=== PATIENT | female | born 1975 | race Caucasian/White ===

== ENCOUNTER 2017-01-15 23:12 | Emergency (ER) | payer SELFPAY ==
[2017-01-15] MEDS ORDERED: Oxymetazoline HCl 0.05% ( 15 ML ) ONE (23:43)
[2017-01-15] MEDS ORDERED: Ibuprofen 800 MG TAB ONE (23:43)
[2017-01-15] MEDS ORDERED: Dexamethasone 4 MG TAB ONE (23:44)
[2017-01-15] MEDS ORDERED: Dexamethasone 4 MG TAB PO SCH (23:45)
== END 2017-01-16 00:11 | disposition home or self-care (01) ==
LOC: ERS 23:12
DX: J30.2 Other seasonal allergic rhinitis (principal); E78.5 Hyperlipidemia, unspecified; I10 Essential (primary) hypertension; Z87.891 Personal history of nicotine dependence
CPT/HCPCS: 99283; J8540

== ENCOUNTER 2017-10-16 12:03 | Observation (INO) | payer SELFPAY ==
[2017-10-16 12:37] LABS: #Basophils 0.1 thou/uL (0.0-0.2); #Eosinphils 0.4 thou/uL (0.0-0.7); #Lymphocytes 4.3 thou/uL (1.20-3.40); #Monocytes 0.6 thou/uL (0.11-0.59); #Neutrophils 5.7 thou/uL (1.40-6.50); %Basophils 0.5 % (0.0-1.0); %Eosinophils 3.6 % (0.0-10.0); %Lymphocytes 39.2 % (21.0-51.0); %Monocytes 5.1 % (0.0-10.0); %Neutrophils 51.7 % (42.0-75.0); Hemoglobin 13.3 g/dL (12.0-16.0); Mean Corpuscular HGB CONC 34.3 g/dL (32.0-36.0); Mean Corpuscular Volume 84.6 fL (78.0-98.0); Mean Platelet Volume 6.6 fL (7.4-10.4); Platelet Count 303 thou/uL (130-400); RBC Distribution Width 12.1 % (11.5-14.5); Red Blood Cell (RBC) Count 4.59 mill/uL (4.20-5.40)
[2017-10-16 12:43] LABS: BHCG - Serum Negative (NEGATIVE); PTT 26.3 SEC (22.9-36.1); Pregs Control Background? CLEAR/WHITE (CLR/WHITE); Pregs Control Bar Appear? YES (CONTROL BAR)
[2017-10-16 12:48] LABS: INR-International Normal Ratio 0.8; Prothrombin Time 11.6 SEC (12.0-14.7)
[2017-10-16 12:51] LABS: ALT (SGPT) 51 U/L (8-55); AST (SGOT) 33 U/L (5-34); Albumin 4.6 g/dL (3.5-5.0); Alkaline Phosphatase 101 U/L (40-150); Anion Gap 13 mmol/L (10-20); BUN (Urea Nitrogen) 12 mg/dL (7.0-18.7); Bilirubin, Total 0.4 mg/dL (0.2-1.2); Calc. Creatinine Clearance 0 mL/min (70-130); Calcium 10.1 mg/dL (7.8-10.44); Carbon Dioxide 27 mmol/L (22-29); Chloride 102 mmol/L (98-107); Estimated GFR-MDRD 78; Globulin 3.4 g/dL (2.4-3.5); Glucose 181 mg/dL (70-105); Potassium 4.5 mmol/L (3.5-5.1); Sodium 137 mmol/L (136-145)
[2017-10-16 12:53] LABS: CKMB 1.4 ng/mL (0-6.6); Troponin I Less than 0.010 ng/mL (< 0.028)
--- NOTE | 2017-10-16 13:02 | CT ---
CT ANGIO OF HEAD WITH CONTRAST: Technique: Multiple contiguous axial images were obtained through the head following angiogram protoc ol with multiplanar reconstruction and 3D post processing. Indication: Stroke protocol. FINDINGS: Intracranial internal carotid arteries are patent and symmetric. Middle cerebral arteries are patent and symmetric. Anterior cerebral arteries appear patent and symmetric. Basilar arteries are patent. Posterior cerebral arteries are patent and symmetric. No evidence of pro ximal stenosis or occlusion identified. IMPRESSION: Unremarkable CT angio of cerebral circulation. CT ANGIO NECK: Technique: Multiple contiguous axial images were obtained through the neck with IV enhancement follow ing angio protocol with multiplanar reconstruction and 3D post processing. Indication: Stroke protocol. Left sided weakness. FINDINGS: No evidence of stenosis seen at the origin of the arch vessels. Common carotid arteries are unremarkable bilaterally. Carotid bifurcations are unremarkable bilaterally. No evidence of atherosclerotic change. The extracranial internal carotid arteries are patent and symmetric. No evidence of stenosis. No evid ence of dissection. Vertebral arteries are patent and symmetric. No soft tissue abnormality identified. IMPRESSION: Unremarkable CT angio of neck. POS: BLU
--- NOTE | 2017-10-16 13:29 | CT ---
CT OF THE BRAIN WITHOUT CONTRAST: INDICATION: Stroke alert with facial numbness, left-sided weakness, and facial droop. COMPARISON: None. FINDINGS: No acute infarct, hemorrhage, or hydrocephalus is present. Septum pellucidum and third ventricle are midline. The skull and extracranial soft tissues are unremarkable. IMPRESSION: No acute intracranial abnormality. Findings were called to Dr. Orourke at 12:22 p.m. on 10/16/17. CODE CR POS: BLU
[2017-10-16 13:35] LABS: Bilirubin Negative (Negative); Blood, Urine Negative (Negative); Clarity CLEAR (Clear); Glucose, Urine (Dipstick) Negative (Negative); Leukocyte Negative (Negative); Nitrite Negative (Negative); Protein, Urine (Dipstick) Negative (Neg-Trace); Urobilinogen 0.2 mg/dL (0.2-1.0); pH, Urine 7.5 (5.0-9.0)
[2017-10-16] MEDS ORDERED: Aspirin 81 mg Enteric Coated Tablet ONE (14:02)
[2017-10-16] MEDS ORDERED: ISOVUE-370 76%-LOCM 1 ML ONE (14:40)
--- NOTE | 2017-10-16 15:07 | HP ---
[facility] [place] [place] REASON FOR ADMISSION: Left-sided upper and lower extremity paraesthesia as well as facial paraesthes ia, rule out cerebrovascular accident. HISTORY OF PRESENT ILLNESS: This is a 42-year-old female, who has underlying history of dyslipidemia ; diabetes, type 2; hypertension; and morbid obesity. She also has chronic cervical spine and lumbar spine degenerative disease, who presented to emergency room with a complaint of left-sided facial up per and lower extremity paraesthesia. Patient reports that all symptoms started yesterday evening ar ound 05:00 p.m. when she was making burger. She reports that her kissed her, and subsequentl y, she was experiencing left-sided facial numbness. She feels as if Orajel placed in her mouth. Sub sequently, she rested, and she also noticed in couple of hours that her left upper extremity was also feeling numb. During nighttime, she also experienced that her lower extremity was also started feel ing numb. Patient denies any similar problem in the past. She does not attribute these symptoms to her cervical and lumbar spine degenerative disease. This was completely different feeling. She was feeling subjective weakness, but she was able to hold and use her left upper extremity, but feeling w as completely different compared to right side. This morning, she woke up; at that time, she was als o having similar feeling and that is why today she decided to come to the emergency room for evaluati on. Patient denies any associated chest pain, palpitation, dizziness, syncope. She denies any unsteadine ss. She denies any trauma or headache. She denies any motor weakness. The patient does report that she has peripheral neuropathy and she is feeling numb in both feet, but this was completely different as well. REVIEW OF SYSTEMS: The following complete review of systems was negative, unless otherwise mentioned in the HPI or below: Constitutional: Weight loss or gain, ability to conduct usual activities. Sk in: Rash, itching. Eyes: Double vision, pain. ENT/Mouth: Nose bleeding, neck stiffness, pain, te nderness. Cardiovascular: Palpitations, dyspnea on exertion, orthopnea. Respiratory: Shortness of breath, wheezing, cough, hemoptysis, fever, or night sweats. Gastrointestinal: Poor appetite, abdo becky pain, heartburn, nausea, vomiting, constipation, or diarrhea. Genitourinary: Urgency, frequen cy, dysuria, nocturia. Musculoskeletal: Pain, swelling. Neurologic/Psychiatric: Anxiety, depressi on. Allergy/Immunologic: Skin rash, bleeding tendency. Please see my HPI for pertinent positive an d negative. All other review of systems reviewed and negative except as mentioned in the HPI. ALLERGIES: CODEINE, SULFATE, PENICILLIN. CURRENT HOME MEDICATIONS: [place] 10 half tablet q.4 hourly p.r.n., Robaxin 750 mg 4 times daily, leoncio tidine 150 mg as needed, gabapentin 600 mg 4 times daily, atenolol 50 mg p.o. daily, metformin 500 mg 3 times daily, trazodone 100 mg p.o. at bedtime, magnesium 250 mg p.o. daily, Fioricet one tablet q. 4 hourly p.r.n., vitamin D3 2000 unit p.o. daily, lovastatin 20 mg p.o. at bedtime, diazepam 5 mg p.o . b.i.d. PAST MEDICAL HISTORY: Diabetes, type 2; degenerative spine disease in cervical spine as well as lumb ar spine, dyslipidemia. PAST PSYCHIATRIC HISTORY: Reviewed and negative. PAST SURGICAL HISTORY: D and C, uterine biopsy, cyst removed from left wrist, left ankle surgery for ligaments, lumbar puncture in 2007, hysterectomy, tonsillectomy, tubal ligation. FAMILY HISTORY: Positive for coronary artery disease to her father. No family history of cancer or stroke. SOCIAL HISTORY: Patient is and lives at home with her . She quit smoking 10 months a go. No history of alcohol or other illicit drug abuse. EMERGENCY ROOM COURSE: The patient is given aspirin. PHYSICAL EXAMINATION: VITAL SIGNS: On arrival, blood pressure 160/83, pulse 70, respiratory rate 18, temperature 98.7, sat uration 98% on room air, weight 111 kilograms. GENERAL: The patient is currently alert, awake, in no obvious acute distress. HEENT: Normocephalic, atraumatic. Eyes: Pupils round, reactive to light. Extraocular muscle intac t. ENT: Oropharynx within normal limits. Moist mucous membranes. No oral lesion, no pharyngeal er ythema, no exudate. NECK: Supple, no JVD, no thyromegaly, no carotid bruit, no jugular venous distention. LUNGS: Clear to auscultation without any rhonchi or rales. CARDIAC: S1 and S2, regular. No murmur, no gallop, no rub. ABDOMEN: Obesity present. Bowel sounds present, nontender, nondistended. No organomegaly, no mass, no suprapubic tenderness. BACK EXAMINATION: Unremarkable, no point tenderness, no CVA tenderness. EXTREMITIES: Upper extremities, passive movement of all joints are normal. Lower extremities, no ed oracio. Good peripheral pulsation. SKIN: No skin rash other than some ant bite in her feet. PSYCHIATRIC: Normal affect. NEUROLOGIC: The patient is alert, oriented x3. Cranial nerves II-XII intact. Speech normal. Motor , 5/5 in all 4 limbs. No pronator drift. Reflexes bilaterally symmetrical. Plantar bilateral flexo r. Gait normal. The patient does have subjective sensory deficit in the left side of face, left upp er extremity, and left lower extremity. SIGNIFICANT LABORATORY DATA: EKG showing junctional rhythm. CT brain, based on my review, no acute intracranial process. CT angiography with a CT [place] negative for any acute process. CBC : WBC 11.0, hemoglobin 13.3, platelets 303. INR 0.8. BMP: Sodium 137, potassium 4.5, chloride 102 , carbon dioxide 27, anion gap 13, BUN 12, creatinine 0.80, glucose 181, calcium 10.1. LFT: AST 33, ALT 51, alkaline phosphatase 101, albumin 4.6, CK-MB 1.4, troponin I less than 0.010. baylee t negative. Urinalysis normal. ASSESSMENT AND PLAN: 1. Acute left-sided paresthesia, including face, upper extremity, and lower extremity, concerning fo r pure sensory stroke, lacunar likely. CT brain did not detect any abnormal process. CT [place] is also negative. The patient presented late. Patient already took aspirin at home by herself and she was given aspirin 81 mg in the emergency room. At this point, the patient still has ongoing symptoms. So, we will keep her in stroke floor for observation. We will do MRI brain to rule out a ny acute process. Echocardiography will be obtained. We will check lipid profile, homocysteine. Fo r risk stratification, we will do neuro check every 4 hourly. If investigation is unremarkable, then we will consider discharging her home tomorrow. 2. Diabetes, type 2, with diabetic neuropathy. We will continue insulin as per sliding scale per pr otocol. Diabetic diet will be given. Continue metformin 500 mg three times daily. 3. Gastroesophageal reflux disease. Continue Pepcid 20 mg p.o. b.i.d. 4. Dyslipidemia. Continue on lovastatin equivalent while in hospital. Check lipid profile tomorrow morning. 5. Hypertension, currently well controlled. Continue atenolol 50 mg p.o. daily. 6. Chronic cervical spine degenerative disease as well as lumbar spine degenerative disease. This p atient has intermittent radicular symptoms in the left upper extremity as well as left lower extremit y. At this point, we will continue Robaxin 750 mg q.i.d. p.r.n., [place] p.r.n. basis, gabapentin 600 mg q.i.d. 7. Migraine headache. We will continue Fioricet one tablet q.4 hourly p.r.n. 8. Morbid obesity. Dietary education given, weight loss education given. Healthy lifestyle measure s discussed with the patient. 9. Deep venous thrombosis prophylaxis not needed, because we are expecting discharge in 24 hours. 10. Gastrointestinal prophylaxis. Pepcid 20 mg p.o. b.i.d. 11. Code status: The patient is FULL CODE. Patient's is surrogate decision maker. Disposition plan within 24 hours. Plan of care discussed with the patient in detail.
[2017-10-16] MEDS ORDERED: Dextrose 50% Abboject 50 ML SYRINGE SLOW IVP PRN (15:33)
[2017-10-16] MEDS ORDERED: Mag-Al 1200 mg/1200 mg/30 ML UDCUP PO PRN (15:33)
[2017-10-16] MEDS ORDERED: Acetaminophen 325 MG TAB PO PRN (15:33)
[2017-10-16] MEDS ORDERED: Diabetic Tussin 200 MG/10 ML UDCUP PO PRN (15:33)
[2017-10-16] MEDS ORDERED: Ondansetron ODT 4 MG TAB PO PRN (15:33)
[2017-10-16] MEDS ORDERED: hydrALAZINE 20 MG/ML VIAL SLOW IVP PRN (15:33)
[2017-10-16] MEDS ORDERED: HumaLOG 300 UNITS/3 ML VIAL SC PRN ×2 (15:33)
[2017-10-16] MEDS ORDERED: Dextrose 5% in Water 1,000 ML IV PRN (15:33)
[2017-10-16] MEDS ORDERED: Chloraseptic Spray 180 ml Bottle PO PRN (15:33)
[2017-10-16] MEDS ORDERED: Sodium Chloride 0.65% Nasal 44 ML BOT EA NARE PRN (15:33)
[2017-10-16] MEDS ORDERED: Milk Of Magnesia 30 ML UDCUP PO PRN (15:33)
[2017-10-16] MEDS ORDERED: Zolpidem Tartrate 5 MG TAB PO PRN (15:33)
[2017-10-16] MEDS ORDERED: traZODone HCl 50 MG TAB PO PRN (15:33)
[2017-10-16] MEDS ORDERED: Loperamide HCl 2 MG CAP PO PRN (15:33)
[2017-10-16] MEDS ORDERED: Eucerin (Mineral Oil/Petrolatum,White) 30 gm Jar TOP PRN (15:33)
[2017-10-16] MEDS ORDERED: Artificial Tears 18 DROP/0.9 ML EA EYE PRN (15:33)
[2017-10-16] MEDS ORDERED: Senokot 8.6 MG TAB PO PRN (15:33)
[2017-10-16] MEDS ORDERED: Loratadine 10 MG TAB PO PRN (15:33)
[2017-10-16] MEDS ORDERED: Ondansetron HCl/PF 4 MG/2 ML Vial IVP PRN (15:33)
[2017-10-16 16:28] LABS: Troponin I Less than 0.010 ng/mL (< 0.028)
[2017-10-16] MEDS: Gabapentin 300 MG CAP PO SCH ×2 (17:15→20:28)
[2017-10-16 18:55] LABS: Troponin I Less than 0.010 ng/mL (< 0.028)
[2017-10-16] MEDS: Diazepam 5 MG TAB PO SCH (20:28)
[2017-10-16] MEDS: Famotidine 20 MG TAB PO SCH (20:29)
[2017-10-16] MEDS ORDERED: Atorvastatin Calcium 10 MG TAB PO SCH (21:00)
[2017-10-16 21:13] VITALS: BMI 38.5
[2017-10-16] MEDS: HYDROcodone/Acetaminophen 5/325 mg Tablet PO PRN (22:53)
[2017-10-16] MEDS: Methocarbamol 500 MG TAB PO PRN (22:57)
[2017-10-17] MEDS: HYDROcodone/Acetaminophen 5/325 mg Tablet PO PRN ×2 (04:50→13:17)
[2017-10-17] MEDS: Methocarbamol 500 MG TAB PO PRN ×2 (04:56→13:18)
[2017-10-17 05:38] LABS: Cardiac Risk 5.5 (Less than 4.5)
--- NOTE | 2017-10-17 08:57 | PDOC.PN ---
- Subjective Encounter Start Date: 10/17/17 Encounter Start Time: 06:50 -: old records requested/rev pt still feels subjective parasthesia but improving, has migraine headache - Objective Resuscitation Status: Resuscitation Status FULL:Full Resuscitation MAR Reviewed: Yes Vital Signs & Weight: Vital Signs (12 hours) Temp Pulse Resp BP Pulse Ox 10/17/17 08:00 97.4 F L 78 20 104/59 L 93 L 10/17/17 03:35 98.9 F 73 20 121/63 91 L 10/16/17 23:06 97.9 F 76 20 117/58 L 95 10/16/17 21:52 95 Weight Weight 246 lb Result Diagrams: 10/16/17 12:18 10/16/17 12:18 Additional Labs: Accuchecks 10/17/17 10/16/17 10/16/17 05:19 19:50 17:17 POC Glucose 135 H 172 H 131 H EKG Reviewed by me: Yes (nsr) Phys Exam - Physical Examination Constitutional: NAD HEENT: PERRLA, moist MMs, sclera anicteric Neck: no JVD, supple Respiratory: no wheezing, no rales, no rhonchi Cardiovascular: RRR, no significant murmur, no rub Gastrointestinal: soft, non-tender, no distention, positive bowel sounds Musculoskeletal: no edema, pulses present Neurological: non-focal, moves all 4 limbs subjective parasthesia on left side Lymphatic: no nodes Psychiatric: normal affect, A&O x 3 Skin: no rash, normal turgor Dx/Plan (1) Paresthesia of left upper and lower extremity Code(s): R20.2 - PARESTHESIA OF SKIN Status: Acute (2) DJD (degenerative joint disease) of cervical spine Code(s): M47.812 - SPONDYLOSIS W/O MYELOPATHY OR RADICULOPATHY, CERVICAL REGION Status: Chronic (3) DJD (degenerative joint disease), lumbosacral Code(s): M51.37 - OTHER INTERVERTEBRAL DISC DEGENERATION, LUMBOSACRAL REGION Status: Chronic (4) Diabetes type 2, controlled Code(s): E11.9 - TYPE 2 DIABETES MELLITUS WITHOUT COMPLICATIONS Status: Chronic (5) Dyslipidemia Code(s): E78.5 - HYPERLIPIDEMIA, UNSPECIFIED Status: Chronic (6) GERD (gastroesophageal reflux disease) Code(s): K21.9 - GASTRO-ESOPHAGEAL REFLUX DISEASE WITHOUT ESOPHAGITIS Status: Chronic (7) Hypertension Code(s): I10 - ESSENTIAL (PRIMARY) HYPERTENSION Status: Chronic (8) Migraine Code(s): G43.909 - MIGRAINE, UNSP, NOT INTRACTABLE, WITHOUT STATUS MIGRAINOSUS Status: Chronic (9) Obesity (BMI 30-39.9) Code(s): E66.9 - OBESITY, UNSPECIFIED Status: Chronic - Plan cont current plan of care * today plan for MRI brain and echo * if mri brain dose show any infarct, will consult neurology and change to inpt status * if mri is negative then she can be discharged home later today * echo is pending * medication reviewed as below * symptomatic treatment * aspirin on discharge. Review of Systems - Review of Systems Eyes: negative: Pain, Vision Change, Conjunctivae Inflammation, Eyelid Inflammation, Redness, Other ENT: negative: Ear Pain, Ear Discharge, Nose Pain, Nose Discharge, Nose Congestion, Mouth Pain, Mouth Swelling, Throat Pain, Throat Swelling, Other Respiratory: negative: Cough, Dry, Shortness of Breath, Hemoptysis, SOB with Excertion, Pleuritic Pain, Sputum, Wheezing Cardiovascular: negative: chest pain, palpitations, orthopnea, paroxysmal nocturnal dyspnea, edema, light headedness, other Gastrointestinal: negative: Nausea, Vomiting, Abdominal Pain, Diarrhea, Constipation, Melena, Hematochezia, Other Genitourinary: negative: Dysuria, Frequency, Incontinence, Hematuria, Retention , Other Skin: negative: Rash, Lesions, [place], Bruising, Other Neurological: Numbness. negative: Weakness, Incoordination, Change in Speech, Confusion, Seizures, Other - Medications/Allergies Allergies/Adverse Reactions: Allergies Allergy/AdvReac Type Severity Reaction Status Date / Time codeine Allergy Verified 01/15/17 23:53 Penicillins Allergy Verified 01/15/17 23:53 Medications: Current Medications Acetaminophen (Tylenol) 650 mg PO Q4H PRN PRN Reason: Headache/Fever or Pain Acetaminophen/Butalbital/Caffeine (Fioricet) 1 tab PO Q4H PRN PRN Reason: Headache Stop: 10/21/17 15:34 Hydrocodone Bitart/Acetaminophen ([place] 5/325) 1 tab PO Q4H PRN PRN Reason: Moderate Pain (4-6) Last Admin: 10/17/17 04:50 Dose: 1 tab Al Hydroxide/Mg Hydroxide (Maalox) 30 ml PO Q6H PRN PRN Reason: Heartburn or Indigestion Artificial Tears (Tears Naturale) 0 drop EA EYE PRN PRN PRN Reason: Dry Eyes Aspirin (Ecotrin) 325 mg PO DAILY [facility] Atenolol (Tenormin) 50 mg PO DAILY [facility] Atorvastatin Calcium (Lipitor) 10 mg PO HS [facility] Last Admin: 10/16/17 20:28 Dose: 10 mg Cholecalciferol (Vitamin D3) 2,000 units PO DAILY [facility] Dextrose/Water (Dextrose 50%) 25 gm SLOW IVP PRN PRN PRN Reason: Hypoglycemia Diazepam (Valium) 5 mg PO BID [facility] Last Admin: 10/16/17 20:28 Dose: 5 mg Famotidine (Pepcid) 20 mg PO BID [facility] Last Admin: 10/16/17 20:29 Dose: Not Given Gabapentin (Neurontin) 600 mg PO QID [facility] Last Admin: 10/16/17 20:28 Dose: 600 mg Glucagon (Glucagon) 1 mg IM PRN PRN PRN Reason: Hypoglycemia Guaifenesin (Robitussin Sf) 200 mg PO Q4H PRN PRN Reason: Cough Hydralazine HCl (Apresoline) 10 mg SLOW IVP Q4H PRN PRN Reason: Systolic BP > 180 Dextrose/Water (D5w) 1,000 mls @ 0 mls/hr IV .Q0M PRN; As Directed PRN Reason: Hypoglycemia Insulin Human Lispro (Humalog) 0 units SC .MODERATE SLIDING SC PRN PRN Reason: Moderate Correctional Scale Insulin Human Lispro (Humalog) 0 units SC .BEDTIME SLIDING SC PRN PRN Reason: Bedtime Correctional Scale Loperamide HCl (Imodium) 2 mg PO PRN PRN PRN Reason: Diarrhea/Loose Stools Loratadine (Claritin) 10 mg PO DAILYPRN PRN PRN Reason: Sinus Symptoms Magnesium Hydroxide (Milk Of Magnesium) 30 ml PO DAILYPRN PRN PRN Reason: Constipation Magnesium Oxide (Magnesium Oxide) 250 mg PO DAILY [facility] Methocarbamol (Robaxin) 500 mg PO QID PRN PRN Reason: Muscle Spasm Last Admin: 10/17/17 04:56 Dose: 500 mg Mineral Oil/White Petrolatum (Eucerin Cream) 0 gm TOP BIDPRN PRN PRN Reason: Dry Skin Ondansetron HCl (Zofran Odt) 4 mg PO Q6H PRN PRN Reason: Nausea/Vomiting Ondansetron HCl (Zofran) 4 mg IVP Q6H PRN PRN Reason: Nausea/Vomiting Phenol (Chloraseptic [place] 180 Ml Bot) 0 ml PO PRN PRN PRN Reason: Sore Throat Senna (Senokot) 2 tab PO HSPRN PRN PRN Reason: Constipation Sodium Chloride ([place] Nasal [place] 0.65%) 0 ml EA NARE QIDPRN PRN PRN Reason: Nasal Congestion Trazodone HCl (Desyrel) 100 mg PO HS PRN PRN Reason: Insomnia Zolpidem Tartrate (Ambien) 5 mg PO HSPRN PRN PRN Reason: Insomnia
[2017-10-17] MEDS ORDERED: Atenolol 50 MG TAB PO SCH (09:00)
[2017-10-17] MEDS ORDERED: Aspirin 325 mg Enteric Coated Tablet PO SCH (09:00)
[2017-10-17] MEDS ORDERED: Magnesium Oxide 250 MG TAB PO SCH (09:00)
[2017-10-17] MEDS: Diazepam 5 MG TAB PO SCH (09:24)
[2017-10-17] MEDS: Fioricet 325/50/40 mg Tablet PO PRN ×2 (09:25→16:53)
[2017-10-17] MEDS: Famotidine 20 MG TAB PO SCH (09:27)
[2017-10-17] MEDS: Gabapentin 300 MG CAP PO SCH ×3 (09:29→16:52)
--- NOTE | 2017-10-17 11:18 | DIS ---
DATE OF ADMISSION: 10/16/2017 DATE OF DISCHARGE: 10/17/2017 DISCHARGE DISPOSITION: Home. PRIMARY DISCHARGE DIAGNOSIS: Paraesthesia, left face, left upper extremity and lower extremity. SECONDARY DISCHARGE DIAGNOSES: Migraine headache; obesity with BMI 38; hypertension; dyslipidemia; g astroesophageal reflux disease; degenerative spine disease of cervical and lumbosacral region; diabet es, type 2. PRIMARY PROCEDURE/OPERATION: None. RADIOLOGICAL INVESTIGATION: CT brain was negative for any acute intracranial process. CT [place] with angiography negative for any acute process. SIGNIFICANT LABORATORY DATA: WBC 11.0, hemoglobin 13.3, platelets 303. INR 0.8, LDL 167, triglyceri de 193, cholesterol 252, HDL 46, homocysteine 5.63. Cardiac enzymes negative. BMP normal. LFT norm al. Urinalysis normal. DISCHARGE MEDICATIONS: Aspirin 325 mg p.o. daily, atenolol 50 mg p.o. daily, Fioricet one tablet q.i .d. p.r.n., vitamin D3 2000 unit p.o. daily, diazepam 5 mg p.o. b.i.d., Nexium 20 mg p.o. daily, ferr ous sulfate 325 mg p.o. daily, gabapentin 600 mg p.o. q.i.d., [place] 10 one tablet q.4 hourly p.r.n., Claritin 10 mg p.o. daily, lovastatin 20 mg p.o. daily, magnesium 250 mg p.o. daily, metformin 500 mg p.o. t.i.d., methocarbamol 750 mg p.o. q.i.d., multivitamin 1 tablet p.o. daily, ranitidine 150 mg p .o. daily, Senokot 1 tablet p.o. b.i.d., trazodone 100 mg p.o. at bedtime. CONTRAINDICATIONS: None. CODE STATUS: FULL CODE. INPATIENT CONSULTANTS: None. ALLERGIES: CODEINE and PENICILLIN. DISCHARGE PLAN: Post hospital, the patient will follow up with primary care physician. HOSPITAL COURSE: This is a 42-year-old female, who experienced left facial and subsequently graduall y progressing paraesthesia to left upper extremity and lower extremity on 10/15/2017 in the evening t ayan. She came to medical attention in the morning of 10/16/2017, as patient did not feel any improve ment in her symptoms. In the emergency room, stroke alert was done and CT brain and CT [place] angiography was negative for any acute process. The patient was not a candidate for any kind of TPA intervention and she was observed on stroke floor. Today, she still has subjective paraesthesia on the left side, though is improvement from yesterday. Her neurological status remained stable. He r monitor remained normal. Her LDL was not well controlled and that is why I provided patient educat ion about low cholesterol diet and compliance with medication. At this point, the patient does not w ant to change her medication. She wanted to continue her lovastatin. Today, we are waiting for MRI and echocardiography. If MRI does show a stroke, then we will consider Neurology consultation and patient's status can be changed from observation to inpatient. If MRI is negative for any stroke, then the patient's symptoms are unlikely to be stroke. It is not consisten t with migraine equivalent as well. In that case, the patient can be discharged later on today and s he can follow up with the Neurology and primary care physician as an outpatient basis. The patient is seen and examined at bedside today. Please see my progress note from today for furthe r detail.
--- NOTE | 2017-10-17 13:05 | MRI ---
NONCONTRAST MRI BRAIN: Date: 10-17-17 History: Left sided facial droop with numbness and left sided weakness that started yesterday but now has resolved. TIA. Comparison: Noncontrast CT head, 10-16-17. FINDINGS: No signal abnormalities are seen within the brain. There is no evidence of an acute infarction. The s eptum pellucidum and third ventricle are on the midline. The ventricular system is normal in size, sh ape, and position. Appropriate flow voids are demonstrated at the base of the brain. Minimal mucosal thickening is seen in the left maxillary antrum as well as a few ethmoidal air cells. Orbits and remainder of the skull base have a normal MRI appearance. IMPRESSION: No acute intracranial abnormality is demonstrated. POS: BLU
[2017-10-17 15:32] VITALS: BP 119/70; TEMP 98.4
--- NOTE | 2017-10-21 11:56 | EKG ---
Test Reason : Blood Pressure : / mmHG Vent. Rate : 067 BPM Atrial Rate : 066 BPM P-R Int : 000 ms QRS Dur : 076 ms QT Int : 390 ms P-R-T Axes : 000 019 015 degrees QTc Int : 412 ms Accelerated Junctional rhythm Abnormal ECG Confirmed by SONA LI ([id number]), communications editor DONNELL THOMPSON ([id number]) on 10/21/2017 11:56:23 AM Referred By: Confirmed By:SONA LI
== END 2017-10-17 18:38 | disposition home or self-care (01) ==
LOC: ERS 12:03 → 2SE 14:01
PROVIDERS: ADMIT Internal Medicine; ATTEND Internal Medicine
DX: R20.2 Paresthesia of skin (principal); E11.9 Type 2 diabetes mellitus without complications; E66.01 Morbid (severe) obesity due to excess calories; E78.5 Hyperlipidemia, unspecified; K21.9 Gastro-esophageal reflux disease without esophagitis; I10 Essential (primary) hypertension; G43.909 Migraine, unspecified, not intractable, without status migrainosus; M51.36 Other intervertebral disc degeneration, lumbar region; M50.30 Other cervical disc degeneration, unspecified cervical region; Z68.38 Body mass index [BMI] 38.0-38.9, adult; Z87.891 Personal history of nicotine dependence; Z88.5 Allergy status to narcotic agent; Z88.0 Allergy status to penicillin; Z88.2 Allergy status to sulfonamides; Z79.899 Other long term (current) drug therapy; Z79.82 Long term (current) use of aspirin; Z79.84 Long term (current) use of oral hypoglycemic drugs
CPT/HCPCS: 36415; 36416; 70450; 70496; 70498; 70551; 80053; 80061; 81003; 82553; 83090; 84484; 84703; 85025; 85610; 85730; 93005; 93306; G0378

== ENCOUNTER 2018-01-31 17:22 | Observation (INO) | payer SELFPAY ==
[2018-01-31 18:40] LABS: #Basophils 0.1 thou/uL (0.0-0.2); #Eosinphils 0.3 thou/uL (0.0-0.7); #Lymphocytes 4.7 thou/uL (1.20-3.40); #Monocytes 0.6 thou/uL (0.11-0.59); #Neutrophils 5.6 thou/uL (1.40-6.50); %Basophils 0.8 % (0.0-1.0); %Eosinophils 2.7 % (0.0-10.0); %Lymphocytes 41.4 % (21.0-51.0); %Monocytes 5.6 % (0.0-10.0); %Neutrophils 49.5 % (42.0-75.0); Hemoglobin 12.7 g/dL (12.0-16.0); Mean Corpuscular HGB CONC 33.4 g/dL (32.0-36.0); Mean Corpuscular Hemoglobin 28.9 pg (27.0-31.0); Mean Corpuscular Volume 86.6 fL (78.0-98.0); Mean Platelet Volume 6.9 fL (7.4-10.4); Platelet Count 344 thou/uL (130-400); RBC Distribution Width 12.1 % (11.5-14.5); White Blood Cell (WBC) Count 11.4 thou/uL (4.8-10.8)
[2018-01-31 18:42] LABS: BHCG - Serum Negative (NEGATIVE); Pregs Control Background? CLEAR/WHITE (CLR/WHITE); Pregs Control Bar Appear? YES (CONTROL BAR)
[2018-01-31 18:48] LABS: INR-International Normal Ratio 0.9; PTT 27.3 SEC (22.9-36.1)
[2018-01-31 19:02] LABS: ALT (SGPT) 29 U/L (8-55); AST (SGOT) 22 U/L (5-34); Albumin 4.7 g/dL (3.5-5.0); Alkaline Phosphatase 99 U/L (40-150); Anion Gap 12 mmol/L (10-20); BUN (Urea Nitrogen) 13 mg/dL (7.0-18.7); Bilirubin, Total 0.4 mg/dL (0.2-1.2); Calc. Creatinine Clearance 0 mL/min (70-130); Calcium 10.1 mg/dL (7.8-10.44); Carbon Dioxide 29 mmol/L (22-29); Chloride 102 mmol/L (98-107); Estimated GFR-MDRD 76; Globulin 3.5 g/dL (2.4-3.5); Glucose 100 mg/dL (70-105); Potassium 4.1 mmol/L (3.5-5.1); Protein, Total 8.2 g/dL (6.0-8.3); Sodium 139 mmol/L (136-145)
[2018-01-31 19:03] LABS: CKMB 1.8 ng/mL (0-6.6); Troponin I Less than 0.010 ng/mL (< 0.028)
--- NOTE | 2018-01-31 19:10 | CT ---
NONCONTRAST CT HEAD: 01/31/18 HISTORY: Facial numbness and headache which started one day ago. COMPARISON: 10/16/17. FINDINGS: There is no evidence of a hemorrhage, acute infarction, mass effect or midline shift. Ventricular sys tem is normal in size, shape and position. There has been no interval change from prior exam. IMPRESSION: No acute intracranial abnormalities demonstrated. POS: MIRNA
[2018-01-31] MEDS ORDERED: Pantoprazole 40 MG VIAL ONE (20:07)
[2018-01-31] MEDS ORDERED: HYDROcodone/Acetaminophen 10/325 mg Tablet ONE (20:07)
[2018-01-31] MEDS ORDERED: Dextrose 50% Abboject 50 ML SYRINGE SLOW IVP PRN (20:54)
[2018-01-31] MEDS ORDERED: Dextrose 5% in Water 1,000 ML IV PRN (20:54)
[2018-01-31] MEDS ORDERED: Acetaminophen 325 MG TAB PO PRN (20:54)
[2018-01-31] MEDS ORDERED: Ondansetron PF 4 MG/2 ML Vial IVP PRN (20:54)
[2018-01-31] MEDS ORDERED: HumaLOG 300 UNITS/3 ML VIAL SC PRN (20:54)
--- NOTE | 2018-01-31 21:19 | HP ---
PRIMARY CARE PROVIDER: Dr. Mike Inman at [facility]. CHIEF COMPLAINT: Numbness. HISTORY OF PRESENT ILLNESS: Ms. Ngo is a pleasant 42-year-old lady who was seen at [facility] on 01/31/2018. She was hospitalized at this facility in 09/2017 for suspected TI A. She had MRI of the brain, a 2D echocardiogram, and a CT angiography of neck and [place] during that hospitalization. She reports that she noticed both of her feet were swollen when she woke up. She reports that it is unusual for her and has not happened since her October hospitalization. She reports having a headache , but is unable to describe it further. She also reports having some nausea. Around 3:00 p.m., she developed left upper extremity numbness and weakness. She denies any vision changes. She also repor ts having left-sided facial numbness. She therefore presented to the emergency room. REVIEW OF SYSTEMS: All other systems were reviewed and found to be negative. PAST MEDICAL HISTORY: Transient ischemic attack, diabetes mellitus type 2, right elbow fracture, ova amos cyst, dyslipidemia, hypertension, and C3-C7 injury. PAST SURGICAL HISTORY: D&C, uterine biopsy, cyst removal from left wrist, left ankle surgery for lig ament injury, spinal taps, hysterectomy, tonsillectomy, and tubal ligation. SOCIAL HISTORY: Significant for myocardial infarction and cerebrovascular accident in her father. SOCIAL HISTORY: The patient denies tobacco use, alcohol use, or recreational drug use. ALLERGIES: CODEINE, DARVOCET, DEMEROL, and PENICILLIN. CURRENT MEDICATIONS: [place] 10/325 mg, half tablet every 3 hours as needed; Robaxin 750 mg 4 times a day, atenolol 25 mg daily, metformin 500 mg 3 times a day, trazodone 100 mg daily, magnesium 250 mg d aily, butalbital/acetaminophen/caffeine 1 tablet every 4 hours as needed, vitamin D3 2000 units daily , lovastatin 40 mg daily, diazepam 5 mg as needed, Nexium 20 mg daily, gabapentin 600 mg 4 times a da y, Claritin 10 mg as needed, multivitamins 1 tablet daily, cranberry 1000 mg daily, and iron 18 mg da sarthak. PHYSICAL EXAMINATION: GENERAL: Ms. Ngo is awake and alert, not in acute distress. VITAL SIGNS: Blood pressure is 152/83, pulse 66, respiratory rate 16, and oxygen saturation 97% on r oom air. She is afebrile. She is obese. EYES: No scleral icterus. No conjunctival pallor. ENT: Moist mucosal membranes. No oropharyngeal erythema or exudates. NECK: Supple, nontender, trachea is midline. RESPIRATORY: Accessory muscles of breathing are not active. Chest wall movements are symmetric bila terally. LUNGS: Clear to auscultation without wheeze, rhonchi, or crepitations. CARDIOVASCULAR: S1 and S2 are heard, regular. Peripheral pulses palpable. No carotid bruit, no per icardial rub. ABDOMEN: Soft, nontender, bowel sounds are heard. No hepatomegaly, no splenomegaly. NEUROLOGIC: There is subjectively diminished sensation over the left side of the face. Otherwise, c ranial nerves II through XII are intact. Power is 5/5 in all 4 extremities. Deep tendon reflexes ar e 2+. Plantars downgoing bilaterally. MUSCULOSKELETAL: Power is 5/5 in all 4 extremities. LYMPHATIC: No cervical lymphadenopathy. SKIN: No rashes or subcutaneous nodules. PSYCHIATRIC: Normal mood, normal affect. Patient is oriented to person, place, and time. LABORATORY DATA: Ms. Ngo's labs and investigations were reviewed. I reviewed her electrocardiogr am, which shows normal sinus rhythm, no ST changes to suggest an acute coronary syndrome. I also rev iewed her noncontrast CT scan of the brain, which does not show any acute intracranial abnormalities. She has a mild leukocytosis of 11,400, of which 49% are neutrophils, normal hemoglobin, normal plat elet count, INR 0.9, normal comprehensive metabolic profile, normal troponin I and negative serum pre gnancy test. ASSESSMENT AND PLAN: Ms. Ngo is a pleasant 42-year-old lady who was seen at [facility] on 01/31/2018. Her problem list includes: 1. Ischemic cerebrovascular accident: The patient is presenting with symptoms that are suggestive o f CVA or TIA. However, she recently had a workup done in September of this year. We will recheck her MRI to ensure there are no new lesions. We will consult Neurology Service for opinion and help with man agement. We will continue her home medications once clarified. We will start her on aspirin. 2. Diabetes mellitus type 2: We will start Accu-Cheks and insulin sliding scale. 3. Hypertension: Resume home medications, monitor vital signs and titrate antihypertensives as need ed. 4. Dyslipidemia: Continue statin. Many thanks for allowing me to participate in your patient's care. Please feel free to contact me wi th any questions or concerns. LEVEL OF RISK: High. LEVEL OF COMPLEXITY: High.
[2018-02-01] MEDS ORDERED: Gabapentin 300 MG CAP PO SCH ×2 (01:15→17:00)
[2018-02-01 05:04] LABS: Anion Gap 11 mmol/L (10-20); BUN (Urea Nitrogen) 12 mg/dL (7.0-18.7); Calc. Creatinine Clearance 154 mL/min (70-130); Calcium 9.3 mg/dL (7.8-10.44); Carbon Dioxide 28 mmol/L (22-29); Cardiac Risk 4.8 (Less than 4.5); Chloride 104 mmol/L (98-107); Cholesterol 205 mg/dl (< 200 Desired); Estimated GFR-MDRD 78; Glucose 91 mg/dL (70-105); HDL Cholesterol 43 mg/dL (>60 Neg Risk); LDL Cholesterol, Calculated 116 mg/dL; Potassium 4.1 mmol/L (3.5-5.1); Sodium 139 mmol/L (136-145); Triglycerides 232 mg/dL (Less than 150)
[2018-02-01 05:18] LABS: Band 1 % (5-11); Eosinophils 1 % (0-10); Hemoglobin 11.3 g/dL (12.0-16.0); Lymphocytes 54 % (21-51); MDiff Complete? YES; Mean Corpuscular HGB CONC 32.7 g/dL (32.0-36.0); Mean Corpuscular Hemoglobin 28.5 pg (27.0-31.0); Mean Corpuscular Volume 87.2 fL (78.0-98.0); Mean Platelet Volume 6.9 fL (7.4-10.4); Monocytes 4 % (0-10); Neutrophil 36 % (42-75); Platelet Count 319 thou/uL (130-400); RBC Distribution Width 12.2 % (11.5-14.5); Reactive Lymphocytes 4 % (0-10); Red Blood Cell (RBC) Count 3.96 mill/uL (4.20-5.40); White Blood Cell (WBC) Count 11.7 thou/uL (4.8-10.8)
--- NOTE | 2018-02-01 08:55 | MRI ---
NONCONTRAST MRI BRAIN: Date: 02/01/18 HISTORY: Stroke. Patient presents with facial numbness and headache. COMPARISON: 10/17/17. FINDINGS: An 8 mm pineal lesion demonstrating increased signal on the FLAIR images is visualized, but this in i ncompletely assessed on this exam. A few scattered nonspecific subcortical white matter foci of increased FLAIR signal intensity, some o f which is artifactual. Some of the punctate densities are of uncertain etiology or clinical signific ance. There is no evidence of an acute infarction. The septum pellucidum and third ventricle are in t he midline. The ventricular system is normal in size, shape, and position. There is mild mucosal thickening seen in the ethmoidal air cells bilaterally, left maxillary antrum, as well as left sphenoid sinus. There has been no significant interval change compared to the prior e xam. IMPRESSION: 1. 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 However, MRI brain with and without IV con trast is recommended for further evaluation. 2. No acute intracranial abnormality is demonstrated. POS: BLU
[2018-02-01] MEDS ORDERED: Enoxaparin Sodium 40 MG/0.4 ML SYRINGE SC SCH (09:00)
[2018-02-01] MEDS ORDERED: Aspirin 325 mg Enteric Coated Tablet PO SCH (09:00)
[2018-02-01] MEDS ORDERED: HYDROcodone/Acetaminophen 10/325 mg Tablet PO SCH (11:30)
[2018-02-01] MEDS ORDERED: Diazepam 5 MG TAB PO PRN (12:42)
[2018-02-01 13:01] VITALS: BMI 36.4
--- NOTE | 2018-02-01 13:15 | PDOC.PN ---
- Subjective Encounter Start Date: 02/01/18 Encounter Start Time: 13:13 Ms. Ngo says the numbness on the side of her face has improved, but not gone away completely. She denies any weakness in her extremities. She tells me she got severe gastritis when taking aspirin, and had hives when she was placed on Plavix. She also mentions having some neck pain, and previous C- spine problems before. - Objective MAR Reviewed: Yes Vital Signs & Weight: Vital Signs (12 hours) Temp Pulse Pulse Resp BP BP Pulse Ox 02/01/18 11:59 97.4 F L 70 14 124/60 96 02/01/18 08:59 98.3 F 85 14 137/63 93 L 02/01/18 08:42 73 137/63 02/01/18 04:00 98.5 F 73 16 94/50 L 92 L Weight Admit Weight 239 lb 12.8 oz Weight 239 lb 12.8 oz I&O: 01/31/18 02/01/18 02/02/18 06:59 06:59 06:59 Intake Total 260 Balance 260 Result Diagrams: 02/01/18 04:08 02/01/18 04:08 Additional Labs: Accuchecks 02/01/18 02/01/18 10:42 05:52 POC Glucose 111 H 93 Phys Exam - Physical Examination HEENT: PERRLA, sclera anicteric Respiratory: no wheezing, no rales, no rhonchi, clear to auscultation bilateral Cardiovascular: RRR, no significant murmur, no rub Gastrointestinal: soft, non-tender, no distention, positive bowel sounds Musculoskeletal: no edema Neurological: non-focal, moves all 4 limbs Dx/Plan (1) Left facial numbness Code(s): R20.0 - ANESTHESIA OF SKIN Status: Acute (2) Diabetes type 2, controlled Code(s): E11.9 - TYPE 2 DIABETES MELLITUS WITHOUT COMPLICATIONS Status: Chronic (3) Dyslipidemia Code(s): E78.5 - HYPERLIPIDEMIA, UNSPECIFIED Status: Chronic (4) Hypertension Code(s): I10 - ESSENTIAL (PRIMARY) HYPERTENSION Status: Chronic - Plan * Left Facial Numbness- ? etiology- TIA vs. Cervical Radiculopathy- will check an MRI of her C-spine, and await further recommendations from Neurology * Dyslipidemia- will increase Lovastatin to 60mg a day * DM- blood glucose is stable * MRI results noted .
[2018-02-01] MEDS ORDERED: HYDROcodone/Acetaminophen 10/325 mg Tablet PO PRN (13:24)
[2018-02-01] MEDS ORDERED: Methocarbamol 500 MG TAB PO PRN (13:24)
[2018-02-01] MEDS ORDERED: metFORMIN 500 MG TAB PO SCH ×2 (13:30→17:00)
[2018-02-01 16:14] VITALS: BP 109/58; TEMP 97.9
[2018-02-01] MEDS ORDERED: Lovastatin 20 MG TAB PO SCH (17:00)
[2018-02-01] MEDS ORDERED: Fiorinal 325/50/40 mg Tablet PO SCH (17:00)
--- NOTE | 2018-02-01 20:51 | CON ---
DATE OF CONSULTATION: 02/01/2018 NEUROLOGY CONSULTATION CONSULTING PHYSICIAN: Hospitalist Service. IMPRESSION: 1. Complex migraine. 2. Chronic neck pain. 3. Diabetes. PLAN: 1. Pamelor 25 mg at night. 2. Continue butalbital p.r.n. headache. 3. Office followup. HISTORY OF PRESENT ILLNESS: Ms. Ngo is a 42-year-old white female with a long history of migraine headaches. She was at work when she started developing some tingling involving the left arm and fac e. This continued on without any limitation of function otherwise. She then started developing a he adache that started occipitally and had spread more hemicranially. She has had chronic migraines and has had this happen one time in the past with similar symptomatology. She became concerned about th e tingling and came into the hospital for evaluation. She had a CT of the brain done, which was nega tive. A followup MRI of the brain was also completely normal. Her vital signs have been stable and she has been afebrile. She had some residual headache and took some medication earlier today for it. She typically uses either Tylenol or butalbital as needed for her headaches. She is reporting at [facility] 3 headache days per week. Occasionally, these are debilitating and are causing her some difficu lty with her employment. She has never been on any prophylactic therapy. She was seen in [facility] told that she has multilevel cervical disk disease, but was not a surgical candidate. She has had some chronic neck pain, which has not been addressed due to financial issues. PAST MEDICAL HISTORY: As listed above. ALLERGIES: STRAWBERRIES, PLAVIX, CODEINE, DEMEROL, PENICILLIN, PROPOXYPHENE. SOCIAL HISTORY: No illicit drug use or alcohol abuse reported. FAMILY HISTORY: Noncontributory. REVIEW OF SYSTEMS: No complaint of chest pain, shortness of breath, abdominal pain or lateralized we akness. PHYSICAL EXAMINATION: VITAL SIGNS: Blood pressure 109/58, pulse 73, respirations 16, temperature 97.9. HEENT: Pupils equal and reactive. Conjunctivae are clear. Oropharynx clear. NECK: No lymphadenopathy noted. EXTREMITIES: No cyanosis. NEUROLOGIC: She is alert and appropriate. Her speech is fluent and clear. Exam is nonfocal. No ab normal movements were seen. IMAGING: MRI images were reviewed. LABORATORY STUDIES: Unremarkable CBC, coags and chemistry panel other than a cholesterol of 205 with a ratio of 4.8. test was negative. SUMMARY: A 42-year-old woman with a long history of migraine headaches. She had some left-sided par esthesias followed by a fairly typical migraine. Her workup for stroke is negative. I do not see an y reason to pursue imaging of her neck. I would be happy to follow up with her as an outpatient.
[2018-02-01] MEDS ORDERED: traZODone HCl 50 MG TAB PO SCH (21:00)
[2018-02-01] MEDS ORDERED: Nortriptyline HCl 25 MG CAP PO SCH (21:00)
[2018-02-02] MEDS ORDERED: Atenolol 25 MG TAB PO SCH (09:00)
[2018-02-02] MEDS ORDERED: Ferrous Sulfate 325 MG TAB PO SCH (09:00)
--- NOTE | 2018-02-02 13:43 | DIS ---
DATE OF ADMISSION: 01/31/2018 DATE OF DISCHARGE: 02/01/2018 PRIMARY CARE PHYSICIAN: Dr. Mike Trammell. DISCHARGE DISPOSITION: Home. PRIMARY DISCHARGE DIAGNOSES: 1. Complex migraine. 2. Hypertension. 3. Diabetes mellitus. 4. Dyslipidemia. DISCHARGE MEDICATIONS: Include Pamelor 25 mg p.o. at bedtime was added. She is to continue lovastat in higher dose at 60 mg q.p.m., trazodone 100 mg at bedtime, docusate sodium 1 tablet twice a day, po tassium gluconate 600 mg daily, multivitamin with folic acid and ginkgo once a day, Robaxin 1000 mg q .i.d. as needed, metformin 500 mg t.i.d., magnesium 250 mg daily, loratadine 10 mg twice a day, [place] 10/325 q.4 hours as needed, Neurontin 600 mg q.i.d., iron sulfate 325 mg daily, magnesium 20 mg twic e a day, diazepam 5 mg twice a day as needed, vitamin D3 2000 units daily, atenolol 25 mg daily, buta lbital aspirin caffeine 1 tablet q.i.d. PROCEDURES DONE DURING ADMISSION: The patient had an MRI of the brain which was negative for any acu te intracranial abnormalities. 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 CODE STATUS: FULL CODE. ALLERGIES: STRAWBERRIES, PLAVIX, CODEINE, MEPERIDINE, PENICILLIN, PROPOXYPHENE. HOSPITAL COURSE: Ms. Ngo is a pleasant 42-year-old female who presented to the emergency room com plaining of headache as well as some numbness on the left side of her face. She also says that this pain radiated down into her arm and fingertips and also down into her legs. She was placed in observ ation due to concerns for possible TIA; however, this was ruled out. She was seen by the neurologist on-call, Dr. Castañeda, who felt that her symptoms were likely related to a complex migraine and recom mended Pamelor as prophylactic treatment. Also it was noted that her cholesterol was not optimally c ontrolled; therefore, the dose of lovastatin was increased to 60 mg. She was also instructed on diet and exercise and is subsequently being discharged home to have a close followup with her primary car e physician in approximately one week.
== END 2018-02-01 19:02 | disposition home or self-care (01) ==
LOC: ERS 17:22 → 2SE 19:35
PROVIDERS: ADMIT Internal Medicine; ATTEND Internal Medicine
DX: G43.809 Other migraine, not intractable, without status migrainosus (principal); M79.89 Other specified soft tissue disorders; R20.0 Anesthesia of skin; E11.9 Type 2 diabetes mellitus without complications; E78.5 Hyperlipidemia, unspecified; I10 Essential (primary) hypertension; G89.29 Other chronic pain; M54.2 Cervicalgia; Z86.73 Personal history of transient ischemic attack (TIA), and cerebral infarction without residual deficits; Z79.84 Long term (current) use of oral hypoglycemic drugs; Z79.899 Other long term (current) drug therapy; Z88.0 Allergy status to penicillin; Z88.5 Allergy status to narcotic agent; Z88.8 Allergy status to other drugs, medicaments and biological substances; Z91.018 Allergy to other foods
CPT/HCPCS: 36415; 36416; 70450; 70551; 80048; 80053; 80061; 82553; 84484; 84703; 85025; 85610; 85730; 90471; 90686; 93005; 94760; 96372; 96374; C9113; G0008; G0378; G8978-GP-CJ; G8979-GP-CJ; G8980-GP-CJ; G8987-GO-CH; G8988-GO-CH; G8989-GO-CH; G8996-GN-CH; G8997-GN-CH; G8998-GN-CH; J1650

== ENCOUNTER 2018-06-21 21:35 | Emergency (ER) | payer SELFPAY ==
[2018-06-21 22:10] LABS: #Basophils 0.1 thou/uL (0.0-0.2); #Eosinphils 0.4 thou/uL (0.0-0.7); #Lymphocytes 5.9 thou/uL (1.20-3.40); #Monocytes 0.6 thou/uL (0.11-0.59); #Neutrophils 5.4 thou/uL (1.40-6.50); %Basophils 0.6 % (0.0-1.0); %Eosinophils 2.9 % (0.0-10.0); %Lymphocytes 48.2 % (21.0-51.0); %Monocytes 4.5 % (0.0-10.0); %Neutrophils 43.8 % (42.0-75.0); Hemoglobin 11.5 g/dL (12.0-16.0); Mean Corpuscular HGB CONC 32.9 g/dL (32.0-36.0); Mean Corpuscular Hemoglobin 28.5 pg (27.0-31.0); Mean Corpuscular Volume 86.8 fL (78.0-98.0); Mean Platelet Volume 6.6 fL (7.4-10.4); Platelet Count 309 thou/uL (130-400); Red Blood Cell (RBC) Count 4.03 mill/uL (4.20-5.40); White Blood Cell (WBC) Count 12.2 thou/uL (4.8-10.8)
[2018-06-21 22:27] LABS: Anion Gap 16 mmol/L (10-20); BUN (Urea Nitrogen) 11 mg/dL (7.0-18.7); Calc. Creatinine Clearance 0 mL/min (70-130); Calcium 9.5 mg/dL (7.8-10.44); Carbon Dioxide 26 mmol/L (22-29); Chloride 102 mmol/L (98-107); Estimated GFR-MDRD 81; Glucose 168 mg/dL (70-105); Potassium 3.6 mmol/L (3.5-5.1); Sodium 140 mmol/L (136-145)
[2018-06-21 22:41] LABS: INR-International Normal Ratio 0.9; PTT 27.9 SEC (22.9-36.1); Prothrombin Time 12.2 SEC (12.0-14.7)
[2018-06-21] MEDS ORDERED: HYDROcodone/Acetaminophen 5/325 mg Tablet ONE (22:52)
[2018-06-21] MEDS ORDERED: Hydrocortisone Acetate 25 MG Suppository PR SCH (23:15)
== END 2018-06-21 23:29 | disposition home or self-care (01) ==
LOC: ERS 21:35
DX: K64.8 Other hemorrhoids (principal); Z86.73 Personal history of transient ischemic attack (TIA), and cerebral infarction without residual deficits; E11.9 Type 2 diabetes mellitus without complications; E78.5 Hyperlipidemia, unspecified; I10 Essential (primary) hypertension; Z87.891 Personal history of nicotine dependence; Z79.84 Long term (current) use of oral hypoglycemic drugs; Z79.899 Other long term (current) drug therapy
CPT/HCPCS: 36415; 80048; 85025; 85610; 85730; 94760

== ENCOUNTER 2019-10-18 15:56 | Emergency (ER) | payer OTHER, SELFPAY ==
--- NOTE | 2019-10-18 16:43 | RAD ---
EXAM: Single view of the chest HISTORY: Covid positive with cough and shortness of breath COMPARISON: None FINDINGS: Single view of the chest shows a normal sized cardiomediastinal silhouette. There may be pulido btle peripheral airspace opacities in the lungs, left greater than right. The bones are unremarkable IMPRESSION: Subtle multifocal infiltrates
[2019-10-18] MEDS ORDERED: Albuterol 200 PUFF (6.7GM INHALER) ONE (16:55)
[2019-10-18] MEDS ORDERED: Dexamethasone 10 MG/ML VIAL ONE (16:55)
[2019-10-18 18:37] LABS: #Eosinphils 0.2 thou/uL (0.0-0.7); #Lymphocytes 2.5 thou/uL (1.20-3.40); #Monocytes 0.6 thou/uL (0.11-0.59); #Neutrophils 4.8 thou/uL (1.40-6.50); %Basophils 0.5 % (0.0-1.0); %Eosinophils 1.9 % (0.0-10.0); %Lymphocytes 31.1 % (21.0-51.0); %Monocytes 7.2 % (0.0-10.0); %Neutrophils 59.3 % (42.0-75.0); Hemoglobin 11.7 g/dL (12.0-16.0); Mean Corpuscular HGB CONC 33.4 g/dL (32.0-36.0); Mean Corpuscular Hemoglobin 28.9 pg (27.0-31.0); Mean Corpuscular Volume 86.7 fL (78.0-98.0); Platelet Count 652 thou/uL (130-400); RBC Distribution Width 12.2 % (11.5-14.5); Red Blood Cell (RBC) Count 4.04 mill/uL (4.20-5.40); White Blood Cell (WBC) Count 8.1 thou/uL (4.8-10.8)
[2019-10-18 18:46] LABS: BHCG - Serum Negative (NEGATIVE); Pregs Control Background? CLEAR/WHITE (CLR/WHITE); Pregs Control Bar Appear? YES (CONTROL BAR)
[2019-10-18 18:58] LABS: ALT (SGPT) 21 U/L (8-55); AST (SGOT) 24 U/L (5-34); Albumin 4.1 g/dL (3.5-5.0); Alkaline Phosphatase 73 U/L (40-110); Anion Gap 15 mmol/L (10-20); BUN (Urea Nitrogen) 12 mg/dL (7.0-18.7); Bilirubin, Total 0.3 mg/dL (0.2-1.2); CK (CPK) 50 U/L (29-168); Calc. Creatinine Clearance 0 mL/min (70-130); Calcium 9.6 mg/dL (7.8-10.44); Carbon Dioxide 27 mmol/L (22-29); Chloride 104 mmol/L (98-107); Estimated GFR-MDRD 84; Globulin 3.9 g/dL (2.4-3.5); Glucose 141 mg/dL (70-105); Potassium 3.6 mmol/L (3.5-5.1); Sodium 142 mmol/L (136-145)
== END 2019-10-18 20:18 | disposition home or self-care (01) ==
LOC: ERS 15:56
DX: U07.1 COVID-19 (principal); R07.81 Pleurodynia; E11.9 Type 2 diabetes mellitus without complications; I10 Essential (primary) hypertension; E78.5 Hyperlipidemia, unspecified; E78.00 Pure hypercholesterolemia, unspecified; Z86.73 Personal history of transient ischemic attack (TIA), and cerebral infarction without residual deficits; Z87.891 Personal history of nicotine dependence; Z79.84 Long term (current) use of oral hypoglycemic drugs; Z79.899 Other long term (current) drug therapy
CPT/HCPCS: 71045; 80053; 82550; 83735; 84484; 84703; 85025; 93005; 96361; 96374; J1100

== ENCOUNTER 2024-01-08 16:24 | Emergency (ER) | payer SELFPAY ==
[~2024-01-08 16:24] MED LIST: Iopamidol-370 76% 500 ML MDV (1 ML CHARGE) ONE
[2024-01-08 17:20] LABS: #Basophils 0.03 10x3/uL (0.0-0.2); %Basophils 0.4 % (0.0-1.0); %Eosinophils 5.2 % (0.0-10.0); %Monocytes 9.8 % (0.0-10.0); %Neutrophils 55.5 % (42.0-75.0); Hematocrit 38.6 % (36.0-47.0); Hemoglobin 12.4 g/dL (12.0-16.0); Mean Corpuscular HGB CONC 32.1 g/dL (32.0-36.0); Mean Corpuscular Hemoglobin 29.4 pg (27.0-31.0); Mean Corpuscular Volume 91.5 fL (78.0-98.0); Mean Platelet Volume 9.2 fL (7.4-10.4); Platelet Count 269 10x3/uL (130-400); RBC Distribution Width 13.2 % (11.5-14.5); Red Blood Cell (RBC) Count 4.22 mill/uL (4.20-5.40)
[2024-01-08 17:36] LABS: ALT (SGPT) 29 U/L (8-55); AST (SGOT) 25 U/L (5-34); Albumin 3.6 g/dL (3.5-5.0); Alkaline Phosphatase 68 U/L (40-110); Anion Gap 15 mmol/L (10-20); BUN (Urea Nitrogen) 15 mg/dL (7.0-18.7); Bilirubin, Total 0.3 mg/dL (0.2-1.2); Calc. Creatinine Clearance 0 mL/min (70-130); Carbon Dioxide 21 mmol/L (22-29); Chloride 107 mmol/L (98-107); Estimated GFR 87; Globulin 3.3 g/dL (2.4-3.5); Glucose 193 mg/dL (70-105); Lipase 66 U/L (8-78); Potassium 3.9 mmol/L (3.5-5.1); Protein, Total 6.9 g/dL (6.0-8.3); Sodium 139 mmol/L (136-145)
[2024-01-08] MEDS ORDERED: Ondansetron PF 4 MG/2 ML Vial ONE (17:58)
[2024-01-08] MEDS ORDERED: Acetaminophen 500 MG TAB ONE (17:58)
[2024-01-08] MEDS ORDERED: Morphine 4 MG/ML VIAL ONE (19:36)
[2024-01-08 20:40] LABS: Bilirubin Negative (Negative); Blood, Urine Trace (Negative); CAUTI Indications for Culture Fever or rigors; Clarity Turbid (Clear); Glucose, Urine (Dipstick) Normal (Negative); Ketone, Urine Negative (Negative); Leukocyte 500 Leu/uL (Negative); Nitrite Negative (Negative); Protein, Urine (Dipstick) 10 mg/dL (Neg-Trace); Specific Gravity, Urine 1.008 (1.002-1.036); Urobilinogen Normal mg/dL (Less than 2); WBC/HPF Greater than 50 HPF (0-3); pH, Urine 5.5 (5.0-9.0)
[2024-01-08 20:52] LABS: Bacteria/HPF 1+ HPF (None Seen)
[2024-01-08 20:56] LABS: Trichomonas/HPF Rare HPF (None Seen)
[2024-01-08 21:02] LABS: Urine Culture Reflex Yes Yes
== END 2024-01-08 21:00 | disposition home or self-care (01) ==
LOC: ERS 16:24
DX: R19.7 Diarrhea, unspecified (principal); R16.0 Hepatomegaly, not elsewhere classified; E11.9 Type 2 diabetes mellitus without complications; I10 Essential (primary) hypertension
CPT/HCPCS: 71045; 74177; 76705; 80053; 81001; 83690; 85025; 87077; 87086; 87186; 93005; 96374; 96375; J2272; J2405; Q9967

== ENCOUNTER 2025-01-21 08:44 | Outpatient (CLI) | payer BC | END 2025-01-21 08:45 | disposition home or self-care (01) | LOC: SCSMRI 08:44 | PROVIDERS: ATTEND Orthopaedic Surgery | DX: M48.02 Spinal stenosis, cervical region (principal) | CPT/HCPCS: 72141 ==